=== PATIENT | male | born 1985 | race Caucasian/White ===

== ENCOUNTER 2020-06-19 21:00 | Emergency (ER) | payer MEDICAID ==
[~2020-06-19] VITALS: Ht 175.3 cm; Wt 95.3 kg
--- NOTE | 2020-06-19 21:00 | NUR ---
BELLA LEVINE, PREBOOK. TAKEN TO CHAIR A
[2020-06-19 21:05] VITALS: BP 123/81
--- NOTE | 2020-06-19 21:06 | NUR ---
PT REFUSING VITAL SIGNS, TRIAGE, AND STATES "I DONT WANT TO BE HERE I JUST WANT TO BE DISCHARGED" DR ESTRADA AWARE.
--- NOTE | 2020-06-19 21:18 | NUR ---
Dr. Guillen examining patient.
--- NOTE | 2020-06-19 21:25 | NUR ---
PATIENT BIB [employer]. PATIENT EXAMINED BY DR. ESTRADA. PATIENT MEDICALLY CLEARED AND RELEASED IN CUSTODY IN STABLE CONDITION. ORIGINAL PRE-BOOK FORM GIVEN TO OFFICER BRIT SHAW# [id number]
== END 2020-06-19 21:25 ==
LOC: MED 21:00
DX: F29 Unspecified psychosis not due to a substance or known physiological condition (principal); Z02.89 Encounter for other administrative examinations
CPT/HCPCS: 99283